=== PATIENT | male | born 1950 | race Caucasian/White ===

== ENCOUNTER → 2018-10-05 | Outpatient (CLI) | payer OTHER ==
[2014-10-26 11:39] VITALS: BP 132/80
[~2018-10-05] MED LIST: ACET325T9 PO; ASPI-630 PO; DILT30TA PO; FLEC100T PO; MULT-18 PO; RIVA20TA2 PO; TERA5CAP3 PO
--- NOTE | 2018-10-05 12:01 | RAD ---
MR#: [id number] Date of Study: 10/05/2018 Ordering Physician: CHEVY BOND, Referring Physician: DOTTIE QUINTANILLA Tech: GOYO Liang APPROVED REPORT Test Type: Exercise Stress Nurse/Tech: Anaya Martin R.N. Test Indications: A fib Cardiac History: Family history, Hypertension, ablation Medications: See Electronic Medical Record Medical History: See Electronic Medical Record Resting ECG: NSR Resting Heart Rate: 69 bpm Resting Blood Pressure: 153/83mmHg Pretest Chest Pain: No chest pain Nurse/Tech Notes S1S2, lungs sound clear Consent: The procedure was explained to the patient in lay terms. Informed consent was witnessed. Rios eout was entered into [employer]. History and Stress Test performed by Anaya Martin R.N. POST EXERCISE Reason for Termination: Reached target heart rate Target HR: 130 Max HR: 145 bpm 95% of Maximum Predicted HR: 153 bpm Exercise duration: 5:49 min:sec, 2 Stage Max Blood Pressure: 143/70mmHg Blood Pressure response to exercise: Normal blood pressure response during stress. Chest Pain: No. Arrhythmia: No. ST Change: No. INTERPRETATION Stress EKG Conclusion: The resting EKG shows a sinus rhythm with mild nonspecific ST segment changes. The stress EKG shows no significant changes from baseline. No EKG evidence of stressed induced ischemia. Imaging Protocol IMAGE PROTOCOL: Rest Tc-99m/stress Tc-99m 1 day Rest: Stress: Viability: Radiopharm.Tc99m SojiocxmeUl71p Sestamibi Dose12.5mCi 34.6mCi Duration 17min. 13min. Img Date 10/05/2018 10/05/2018 Inj-Img [id number]. 60min. Rest Admin Site:IV - Right AntecubitalAdministrator:RT Aguilar (R)(N) Stress Admin Site: IV - Right AntecubitalAdministrator: RT Aguilar (R)(N) STRESS DATA End Diast. Vol.127.0mlEnd Syst. Vol.43.0ml Myocardial Dalb553.0gEject. Slzdqpfg95.0% Stress Scores Regional WT0.00Summed WT6.00 Regional WM0.00Summed WM5.00 LV Perfusion The stress scans show no significant defects. The rest scans show no significant defects. Nuclear imaging shows no reversible ischemia or infarct. Wall Motion Normal left ventricular systolic function with no wall motion abnormalities and an ejection fraction of 66%. LV Perf. Quant 17 Seg. SSS2.00 17 Seg. SRS0.00 17 Seg. SDS2.00 Stress Defect Extent (% LAD)1.30Rest Defect Extent (% LAD)0.00Rev. Defect Extent (% LAD)1.30 Stress Defect Extent (% LCX) 13.80Rest Defect Extent (% LCX)2.50Rev. Defect Extent (% LCX)10.00 Stress Defect Extent (% RCA)0.00Rest Defect Extent (% RCA)0.00Rev. Defect Extent (% RCA)0.00 Stress Defect Extent (% CARMELO)6.50Rest Defect Extent (% CARMELO)1.30Rev. Defect Extent (% CARMELO)4.10 Conclusion 1. Good exercise tolerance. 2. No reported chest pain with exertion. 3. Nuclear imaging shows no reversible ischemia or infarct. 4. Normal left ventricular systolic function with an ejection fraction of 66%. 5. Low risk treadmill nuclear stress test. Signed by : Chevy Bond MD Electronically Approved : 10/05/2018 11:59:47
== END | disposition home or self-care (01) ==
LOC: NM 08:04
PROVIDERS: ATTEND Internal Medicine Cardiovascular Disease
DX: I48.91 Unspecified atrial fibrillation (principal); I10 Essential (primary) hypertension; R06.09 Other forms of dyspnea
CPT/HCPCS: 78452; 93017; 96374; 96376; A9500

== ENCOUNTER → 2019-06-20 | Outpatient (CLI) | payer OTHER ==
[2014-10-26 11:39] VITALS: BP 132/80
--- NOTE | 2019-06-21 08:19 | KCIC ---
MRI of the lumbar spine without contrast 06/20/2019 CLINICAL HISTORY: Low back pain which radiates down both legs TECHNIQUE: Unenhanced T1-weighted and T2-weighted sagittal and axial and inversion recovery sagittal images of the lumbar spine were obtained. FINDINGS: Mild S-shaped curvature of the thoracolumbar spine is seen. Degenerative signal changes are seen involving all of the disks of the lumbar spine. Degenerative signal changes are seen within the marrow surrounding these discs. Loss of height of the L3-4disc is noted. Hemangiomas are seen involving the L2, L3 and L4 vertebral bodies. These measure 5 mm to 1.7 cm in size. The conus medullaris is normal morphology, position, and signal characteristics. At the L1-2 disc space there is a mild generalized disc bulge. Degenerative changes are seen involving the facet joints bilaterally. There is mild ligamentum flavum hypertrophy bilaterally. These findings do not result in significant central spinal canal or neural foraminal stenosis. At the L2-3 disc space there is a mild to moderate generalized disc bulge. This is eccentric to the left. Degenerative changes are seen involving the facet joints bilaterally. There is moderate ligamentum flavum hypertrophy bilaterally. These findings when combined result in mild central spinal canal stenosis. No neural foraminal stenosis is seen. At the L3-4 disc space there is a mild to moderate generalized disc bulge. This is eccentric to the left. Degenerative changes are seen involving the facet joints bilaterally. There is mild ligamentum flavum hypertrophy bilaterally. There is prominence of the posterior epidural fat. These findings when combined result in mild to moderate central spinal canal stenosis. Mild to moderate left neural foraminal stenosis is seen. The right neural foramen is patent. At the L4-5 disc space there is a moderate generalized disc bulge. This is eccentric to the right. Degenerative changes are seen involving the facet joints bilaterally. There is moderate ligamentum flavum hypertrophy bilaterally. There is prominence of the posterior epidural fat. There is a small right facet joint effusion. These findings when combined result in moderate to severe central spinal canal stenosis. Moderate right neural foraminal stenosis is seen. The left neural foramen is patent. At the L5-S1 disc space there is a mild generalized disc bulge. This is eccentric to the right. Degenerative changes are seen involving the facet joints, right greater than left. There is mild ligamentum flavum hypertrophy bilaterally. These findings do not result in significant central spinal canal stenosis. Mild to moderate right neural foraminal stenosis is seen. The left neural foramen is patent. IMPRESSION: The changes of degenerative disc disease are seen throughout the lumbar spine. These findings result in mild central spinal canal stenosis at L2-3, mild to moderate central spinal canal stenosis at L3-4 and moderate to severe central spinal canal stenosis at L4-5. Mild to moderate left neural foraminal stenosis is seen at L3-4. Moderate right neural foraminal stenosis is seen at L4-5. Mild to moderate right neural foraminal stenosis is seen at L5-S1. Electronically signed by: Richard Cobb MD (06/21/2019 8:16 AM) [facility]
== END | disposition home or self-care (01) ==
LOC: KCIC MRI 17:28
PROVIDERS: ATTEND Anesthesiology
DX: M51.16 Intervertebral disc disorders with radiculopathy, lumbar region (principal); M47.26 Other spondylosis with radiculopathy, lumbar region; M48.07 Spinal stenosis, lumbosacral region; M47.818 Spondylosis without myelopathy or radiculopathy, sacral and sacrococcygeal region; D18.09 Hemangioma of other sites; M89.38 Hypertrophy of bone, other site
CPT/HCPCS: 72148